=== PATIENT | male | born 1980 | race Caucasian/White ===

== ENCOUNTER 2023-11-08 17:44 | Emergency (ER) | payer SELFPAY ==
[2023-11-08 18:01] VITALS: TEMP 97.9
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
[2023-11-08 18:24] LABS: Absolute Neutrophil Ct (ANC) 1.83 x10^3/uL (1.4-6.9); Basophil (Absolute #) 0.07 x10^3/uL (0-0.4); Eosinophil % 1.4 % (0.00-5.0); Eosinophil (Absolute #) 0.05 x10^3/uL (0-0.5); Hematocrit 42.6 % (42-50); Lymphocyte (Absolute #) 1.09 x10^3/uL (1.0-4.6); Lymphocytes % 30.8 % (24.0-44.0); Mean Cell Volume 98.2 fL (78-100); Mean Corpuscular Hemoglobin 32.3 pg (26-32); Mean Corpuscular Hgb Concent. 32.9 g/dL (32-36); Mean Platelet Volume 10.7 fL (7.5-11.0); Monocytes % 14.1 % (0.0-12.0); Neutrophil % 51.7 % (36.0-66.0); Platelet Count 107 x10^3/uL (150-450); Red Blood Count 4.34 x10^6/uL (4.1-5.6); Red Cell Distribution Width 12.5 % (11.5-14.0); White Blood Count 3.5 x10^3/uL (4.0-10.5)
[2023-11-08 18:38] LABS: ALBUMIN 4.4 g/dL (3.5-5.0); ANION GAP 18.5 MEQ/L (5-15); Calcium 8.2 mg/dL (8.4-10.2); Creatinine 1 0.86 mg/dL (0.66-1.25); EST GLOMERULAR FILTRATION RATE 108.8 ML/MIN; Potassium 3.4 mmol/L (3.5-5.1); Total Protein 8.4 g/dL (6.3-8.2)
[2023-11-08 19:40] VITALS: BP 107/78; PULSE 90; RESP 18
[2023-11-08 19:45] VITALS: O2SAT 93
== END 2023-11-08 19:44 | disposition home or self-care (01) ==
LOC: ED 17:44
DX: Z02.89 Encounter for other administrative examinations (principal); F10.129 Alcohol abuse with intoxication, unspecified; Y90.8 Blood alcohol level of 240 mg/100 ml or more; Z79.899 Other long term (current) drug therapy; Z28.310 Unvaccinated for COVID-19
CPT/HCPCS: 36415; 80053; 82077; 85025; 93005; 93041; 94760; 99283